=== PATIENT | male | born 1985 | race Hispanic/Latino ===

== ENCOUNTER 2021-07-24 15:10 | Inpatient (IN) | payer SELFPAY ==
[~2021-07-24] VITALS: Ht 167.6 cm; Wt 68.0 kg
[2021-07-24 15:11] VITALS: BP 135/76
[2021-07-24] MEDS ORDERED: MORPHINE 4 MG SYG ONE (15:45)
[2021-07-24] MEDS ORDERED: ONDANSETRON 4MG INJ ONE (15:45)
[2021-07-24] MEDS ORDERED: CEFAZOLIN SODIUM 1 GM VIAL ONE (15:46)
[2021-07-24] MEDS ORDERED: HYDROMORPHONE 0.5 MG SYG (0.5MG/0.5ML) IVP PRN (16:30)
[2021-07-24] MEDS ORDERED: HYDROMORPHONE 1 MG INJ IVP PRN (16:30)
[2021-07-24] MEDS ORDERED: ONDANSETRON 4MG INJ IV PRN (16:30)
[2021-07-24] MEDS ORDERED: DIPH,PERTUSS(ACELL),TET VAC/PF 0.5 ML VIAL IM ONE (16:30)
[2021-07-24] MEDS ORDERED: ACETAMINOPHEN 325 MG TAB PO PRN ×2 (16:30)
[2021-07-24 16:33] LABS: BASOPHILS % (AUTO) 0.3 % (0.0-5.0); EOSINOPHILS % (AUTO) 1.7 % (0.0-8.0); HEMATOCRIT 38.2 % (42-54); LYMPHOCYTES % (AUTO) 33.6 % (21.0-51.0); MEAN CORPUSCULAR HEMOGLOBIN 31.1 pg (27.0-33.0); MEAN CORPUSCULAR HGB CONC 34.3 g/dL (32.0-36.0); MEAN CORPUSCULAR VOLUME 90.7 fL (79-99); MONOCYTES % (AUTO) 7.8 % (3.0-13.0); NEUTROPHILS % (AUTO) 56.3 % (40.0-77.0); PLATELET COUNT (AUTO) 245 K/uL (130-400); RED BLOOD CELL COUNT(AUTO) 4.21 MIL/uL (4.50-6.20); RED CELL DISTRIBUTION WIDTH 14.6 % (11.0-15.5); WHITE BLOOD COUNT (AUTO) 5.7 K/uL (4.8-10.8)
[2021-07-24 16:37] LABS: CREATININE 1.2 mg/dL (0.5-1.5); POTASSIUM 3.5 mmol/L (3.5-5.1)
[2021-07-24 16:39] LABS: PROTHROMBIN TIME 10.9 SEC (9.6-11.6)
[2021-07-24 16:42] LABS: ALBUMIN 3.7 g/dL (3.5-5.0); BILIRUBIN,TOTAL 0.3 mg/dL (0.2-1.0); TOTAL PROTEIN, SERUM 7.2 g/dL (6.0-8.3)
[2021-07-24 17:58] LABS: MAGNESIUM 2.1 mg/dL (1.80-2.40); PHOSPHORUS 4.5 mg/dL (2.5-4.9)
[2021-07-24] MEDS ORDERED: AMP/SULBAC 3GM+NS 100ML IV SCH (18:00)
[2021-07-24 19:40] VITALS: BP 113/76
[2021-07-24] MEDS: METRONIDAZOLE 500MG/100ML BAG 100 ML IV SCH (20:09)
[2021-07-24] MEDS: FAMOTIDINE 20MG VIAL IV SCH (20:10)
[2021-07-24] MEDS: LACTATED RINGERS 1000ML IV SCH (20:10)
[2021-07-24] MEDS: AMP/SULBAC 3GM+NS 100ML 100 ML IV SCH (21:00)
[2021-07-24] MEDS ORDERED: AMPICILLIN/SULBAC 1.5GM VIAL ONE ×2 (21:30)
[2021-07-24] MEDS ORDERED: 0.9%NACL 100ML 100 ML ONE (21:32)
[2021-07-24] MEDS: 0.9%NACL 1000ML 1,000 ML IV SCH (21:44)
[2021-07-25] VITALS (23 sets, daily range): BP systolic 102–133; BP diastolic 49–84
[2021-07-25] MEDS: 0.9%NACL 1000ML 1,000 ML IV SCH ×2 (03:22→12:30)
[2021-07-25] MEDS: METRONIDAZOLE 500MG/100ML BAG 100 ML IV SCH ×4 (03:22→23:51)
[2021-07-25] MEDS: AMP/SULBAC 3GM+NS 100ML 100 ML IV SCH ×4 (04:00→20:05)
[2021-07-25] MEDS: FAMOTIDINE 20MG VIAL IV SCH ×2 (09:34→20:06)
[2021-07-25] MEDS ORDERED: CEFAZOLIN SODIUM 1 GM VIAL IVP PRN (10:30)
[2021-07-25] MEDS ORDERED: LIDOCAINE PF 100MG/5ML (2%) SYRINGE 5ML ONE (12:01)
[2021-07-25] MEDS ORDERED: ONDANSETRON 4MG INJ ONE (12:02)
[2021-07-25] MEDS ORDERED: ROCURONIUM 10MG/1ML SYR 10 MG/ML ML ONE (12:02)
[2021-07-25] MEDS ORDERED: MIDAZOLAM HCL 1 MG/ML 2ML VIAL ONE (12:02)
[2021-07-25] MEDS ORDERED: PROPOFOL 10 MG/ML 20ML VIAL IV ONE (12:02)
[2021-07-25] MEDS ORDERED: EPHEDRINE SULFATE 50 MG/ML AMPULE ONE (12:18)
[2021-07-25] MEDS ORDERED: FENTANYL CITRATE PF 50 MCG/1 ML 2ML VIAL ONE ×2 (12:24→12:50)
[2021-07-25] MEDS ORDERED: GLYCOPYRROLATE 1 MG/5 ML SYRINGE ONE (12:38)
[2021-07-25] MEDS ORDERED: BUPIVACAINE/PF 0.25% 30ML VIAL IJ ONE (12:40)
[2021-07-25] MEDS: LACTATED RINGERS 1000ML IV SCH (18:04)
[2021-07-25 18:16] LABS: HEMATOCRIT 39.3 % (42-54)
[2021-07-25 18:25] LABS: CREATININE 1.2 mg/dL (0.5-1.5); POTASSIUM 3.5 mmol/L (3.5-5.1)
[2021-07-26] MEDS: AMP/SULBAC 3GM+NS 100ML 100 ML IV SCH ×3 (03:15→15:00)
[2021-07-26] MEDS: 0.9%NACL 1000ML 1,000 ML IV SCH ×2 (03:15→08:34)
[2021-07-26 04:37] VITALS: BP 104/66
[2021-07-26 05:42] LABS: EOSINOPHILS % (AUTO) 3.4 % (0.0-8.0); HEMATOCRIT 37.4 % (42-54); LYMPHOCYTES % (AUTO) 14.1 % (21.0-51.0); MEAN CORPUSCULAR HEMOGLOBIN 30.7 pg (27.0-33.0); MEAN CORPUSCULAR HGB CONC 33.7 g/dL (32.0-36.0); MEAN CORPUSCULAR VOLUME 91.2 fL (79-99); MONOCYTES % (AUTO) 4.1 % (3.0-13.0); NEUTROPHILS % (AUTO) 78.2 % (40.0-77.0); PLATELET COUNT (AUTO) 218 K/uL (130-400); RED CELL DISTRIBUTION WIDTH 14.8 % (11.0-15.5); WHITE BLOOD COUNT (AUTO) 4.7 K/uL (4.8-10.8)
[2021-07-26 05:49] LABS: CREATININE 1.1 mg/dL (0.5-1.5); POTASSIUM 3.8 mmol/L (3.5-5.1)
[2021-07-26 08:00] VITALS: BP 104/63
[2021-07-26] MEDS: METRONIDAZOLE 500MG/100ML BAG 100 ML IV SCH ×2 (08:34→16:30)
[2021-07-26] MEDS: FAMOTIDINE 20MG VIAL IV SCH (08:34)
[2021-07-26 12:00] VITALS: BP 104/70
[2021-07-26 16:00] VITALS: BP 111/73
[2021-07-26] MEDS ORDERED: ACET1TAB25 PO (16:05)
[2021-07-26] MEDS ORDERED: CEPH500B PO (16:05)
== END 2021-07-26 18:00 | disposition home or self-care (01) | DRG 577 ==
LOC: EDH 15:10 → EDHIP 15:11 → 3BH 07-25 08:46
PROVIDERS: ADMIT Internal Medicine; ATTEND Internal Medicine
PROC: 3E0234Z Introduction of Serum, Toxoid and Vaccine into Muscle, Percutaneous Approach (ICD-10-PCS; 2021-07-24)
PROC: 0XBF0ZZ Excision of Left Lower Arm, Open Approach (ICD-10-PCS; principal; 2021-07-25 12:08)
DX: S51.812A Laceration without foreign body of left forearm, initial encounter (principal); D62 Acute posthemorrhagic anemia; Z20.822 Contact with and (suspected) exposure to COVID-19; F14.90 Cocaine use, unspecified, uncomplicated; W27.0XXA Contact with workbench tool, initial encounter; Y93.89 Activity, other specified; Y92.89 Other specified places as the place of occurrence of the external cause; Y99.8 Other external cause status; Z23 Encounter for immunization
CPT/HCPCS: 36415; 80048; 80053; 83605; 83735; 84100; 84145; 85014; 85018; 85025; 85610; 87070; 87076; 87205; 87635; 90715; G0378; J0295; J0690; J2001; J2250; J2270; J2405; J2704; J3010; J3490; J7030; J7120